=== PATIENT | female | born 1950 | race Caucasian/White ===

== ENCOUNTER 2018-06-26 15:57 | Emergency (ER) | payer MEDICARE, OTHER ==
[2018-06-26 16:06] VITALS: BP 154/82
--- NOTE | 2018-06-26 17:52 | ER Document Report ---
ED Medical Screen (RME) - General Chief Complaint: Eye Problem Stated Complaint: EYE PAIN Time Seen by Provider: 06/26/18 17:50 Mode of Arrival: Ambulatory Information source: Patient Notes: 67-year-old female presents to ED for complaint of severe pain in bilateral eyes. Patient has a history of Sjogren's, rheumatoid arthritis, and benign heart palpitations. She has been seen by a food counselor at home she does not live in [place]. She states she receives steroid drops 2 drops in each eye 4-week then she had one drop in each eye for week and then she was started on Restasis for 5 days ago. She states 2 days ago her eyes started to swell become very painful and they had blisters on she went to an urgent care yesterday they told her to stop the Restasis and gave her prednisone because it was an allergic reaction. She states she also had a lot of swelling soreness and crusting drainage. She states she went back to the urgent care today and they put her on tobramycin and told her to go to the ER for further treatment. Patient states the eyes are still painful she is got a 3 out of 5 pain. She states she has Tylenol Motrin that she is been taken. Patient does have red swollen eyes at this time. I have greeted and performed a rapid initial assessment of this patient. A comprehensive ED assessment and evaluation of the patient, analysis of test results and completion of medical decision making process will be conducted by an additional ED providers. Past Medical History Renal/ Medical History: Denies: Hx Peritoneal Dialysis Musculoskeltal Medical History: Reports Hx Arthritis Past Surgical History: Reports: Hx Orthopedic Surgery - left wrist Physical Exam - Vital signs Vitals: Temp Pulse Resp BP Pulse Ox 98.3 F 96 18 154/82 H 92 06/26/18 16:05 06/26/18 16:05 06/26/18 16:05 06/26/18 16:05 06/26/18 16:05 Course - Vital Signs Vital signs: Temp Pulse Resp BP Pulse Ox 98.3 F 96 18 154/82 H 92 06/26/18 16:05 06/26/18 16:05 06/26/18 16:05 06/26/18 16:05 06/26/18 16:05
--- NOTE | 2018-06-26 19:29 | ER Document Report ---
ED General - General Chief Complaint: Eye Problem Stated Complaint: EYE PAIN Time Seen by Provider: 06/26/18 17:50 Mode of Arrival: Ambulatory Notes: 67-year-old female presents to ED for complaint of severe pain in bilateral eyes. Patient has a history of Sjogren's, rheumatoid arthritis, and benign heart palpitations. She states she receives steroid drops 2 drops in each eye 4 -week then she had one drop in each eye for week and then she was started on Restasis for 5 days ago. She states 2 days ago her eyes started to swell become very painful and they had blisters on she went to an urgent care yesterday they told her to stop the Restasis and gave her prednisone because it was an allergic reaction. She states she also had a lot of swelling soreness and crusting drainage. She states she went back to the urgent care today and they put her on tobramycin and told her to go to the ER for further treatment. She does also note that she recently started on a new eye cream and is wondering if this could have prompted her symptoms. Past Medical History - General Information source: Patient - Social History Smoking Status: Never Smoker Frequency of alcohol use: None Drug Abuse: None Lives with: Spouse/Significant other Family History: Reviewed & Not Pertinent Patient has suicidal ideation: No Patient has homicidal ideation: No Renal/ Medical History: Denies: Hx Peritoneal Dialysis Musculoskeletal Medical History: Reports Hx Arthritis Past Surgical History: Reports: Hx Orthopedic Surgery - left wrist Review of Systems - Review of Systems Notes: Constitutional: Negative for fever. HENT: Negative for sore throat. Eyes: Positive for bilateral eye irritation Cardiovascular: Negative for chest pain. Respiratory: Negative for shortness of breath. Gastrointestinal: Negative for abdominal pain, vomiting or diarrhea. Genitourinary: Negative for dysuria. Musculoskeletal: Negative for back pain. Skin: Negative for rash. Neurological: Negative for headaches, weakness or numbness. 10 point ROS negative except as marked above and in HPI. Physical Exam - Vital signs Vitals: Temp Pulse Resp BP Pulse Ox 98.3 F 96 18 154/82 H 92 06/26/18 16:05 06/26/18 16:05 06/26/18 16:05 06/26/18 16:05 06/26/18 16:05 Interpretation: Hypertensive Notes: PHYSICAL EXAMINATION: GENERAL: Well-appearing, well-nourished and in no acute distress. HEAD: Atraumatic, normocephalic. EYES: Pupils equal round and reactive to light, extraocular movements intact, diffuse scleral injection and conjunctival erythema. Crusting discharge to the bilateral corners of the left eye, not present on the right. There is seen staining applied. No evidence of corneal abrasion or ulcer. Visual acuity is 20/20 bilaterally at the bedside with glasses on. ENT: nares patent, oropharynx clear without exudates. Moist mucous membranes. NECK: Normal range of motion, supple without lymphadenopathy LUNGS: Breath sounds clear to auscultation bilaterally and equal. No wheezes rales or rhonchi. HEART: Regular rate and rhythm without murmurs ABDOMEN: Soft, nontender, normoactive bowel sounds. No guarding, no rebound. No masses appreciated. EXTREMITIES: Normal range of motion, no pitting or edema. No cyanosis. NEUROLOGICAL: No focal neurological deficits. Moves all extremities spontaneously and on command. PSYCH: Normal mood, normal affect. SKIN: Warm, Dry, normal turgor, no rashes or lesions noted. Course - Re-evaluation Re-evalutation: 06/26/18 19:25 Presentation of a slightly uncomfortable appearing 67-year-old female with a known history of Sjogren's and recurrent dry eyes. The patient appears to be having most likely an acute allergic reaction to either the Restasis versus a new cream that she had been applying around her eyes and face. My concern for this is based on the fact that she does have swelling of the eyelids and excess erythema and what appear to be faint urticaria along the cheeks and forehead as well where she has been applying this cream. I have advised immediate discontinuation. I advised that she continue on prednisone that she is already taking, use Visine moisturizing drops. The patient has also been advised to continue on the tobramycin as previously prescribed in case this could be a bacterial conjunctivitis. Viral conjunct Vitas is also on the differential although seems somewhat less likely given the absence of associated URI symptoms. Patient has no evidence of a corneal ulcer or corneal abrasion on exam. She did have complete relief of her symptoms here after getting a dose of tetracaine. I have advised outpatient follow-up with ophthalmology on Thursday. At this time will discharge with return precautions and follow-up recommendations. Verbal discharge instructions given a the bedside and opportunity for questions given. Medication warnings reviewed. Patient is in agreement with this plan and has verbalized understanding of return precautions and the need for ophthalmology follow-up on Thursday. - Vital Signs Vital signs: Temp Pulse Resp BP Pulse Ox 98.3 F 96 18 154/82 H 92 06/26/18 16:05 06/26/18 16:05 06/26/18 16:05 06/26/18 16:05 06/26/18 16:05 Discharge - Discharge Clinical Impression: Conjunctivitis Qualifiers: Conjunctivitis type: acute Acute conjunctivitis type: atopic Laterality: bilateral Qualified Code(s): H10.13 - Acute atopic conjunctivitis, bilateral Contact dermatitis Qualifiers: Contact dermatitis type: allergic Contact dermatitis trigger: cosmetics Qualified Code(s): L23.2 - Allergic contact dermatitis due to cosmetics Condition: Good Disposition: HOME, SELF-CARE Additional Instructions: Please continue on the tobramycin eyedrops, oral prednisone, begin cetirizine 10 mg 3 times daily which can be purchased directly over the counter. Please discontinue the new eye cream that you started recently. Continue to use moisturizing eyedrops as needed for discomfort. Please follow-up with ophthalmology on Thursday. Return to the emergency department immediately if you have worsening of your symptoms, changes in your vision, fever greater than 100.4 F, or any other symptoms that are worrisome to you. Referrals: SHAUN RUIZ DO [ACTIVE STAFF] - 06/28/18
== END 2018-06-26 19:54 | disposition home or self-care (01) ==
LOC: ER 15:57
DX: H10.13 Acute atopic conjunctivitis, bilateral (principal); L23.2 Allergic contact dermatitis due to cosmetics; H57.13 Ocular pain, bilateral
CPT/HCPCS: 99282

== ENCOUNTER 2019-08-30 02:03 | Emergency (ER) | payer MEDICARE, OTHER ==
[2019-08-30 03:46] LABS: ABSOLUTE BASOPHILS # (AUTO) 0.1 10^3/uL (0.0-0.2); ABSOLUTE LYMPHOCYTES (AUTO) 0.5 10^3/uL (0.5-4.7); ABSOLUTE MONOCYTES (AUTO) 0.5 10^3/uL (0.1-1.4); TOTAL CELLS COUNTED % (AUTO) 100 %
[2019-08-30 03:51] LABS: ABSOLUTE EOSINOPHILS # (AUTO) 0.1 10^3/uL (0.0-0.6); ABSOLUTE NEUT (AUTO) 5.2 10^3/uL (1.7-8.2); BASOPHILS % (AUTO) 0.9 % (0-2); EOSINOPHILS % (AUTO) 0.9 % (0-6); HEMATOCRIT 42.3 % (36.0-47.0); HEMOGLOBIN 14.5 g/dL (12.0-15.5); LYMPHOCYTES % (AUTO) 8.5 % (13-45); MEAN CORPUSCULAR HEMOGLOBIN 30.4 pg (27.0-33.4); MEAN CORPUSCULAR HGB CONC 34.2 g/dL (32.0-36.0); MEAN CORPUSCULAR VOLUME 89 fl (80-97); MONOCYTES % (AUTO) 8.1 % (3-13); PLATELET COUNT 193 10^3/uL (150-450); RED BLOOD COUNT 4.76 10^6/uL (3.72-5.28); RED CELL DISTRIBUTION WIDTH 13.1 % (11.5-14.0); SEGMENTED NEUTROPHILS % (AUTO) 81.6 % (42-78); WHITE BLOOD COUNT 6.4 10^3/uL (4.0-10.5)
[2019-08-30 03:55] LABS: APPEARANCE,URINE CLEAR; BILIRUBIN,URINE NEGATIVE (NEGATIVE); COLOR,URINE STRAW; GLUCOSE, URINE NEGATIVE (NEGATIVE); KETONES,URINE NEGATIVE (NEGATIVE); LEUKOCYTE ESTERASE,URINE NEGATIVE (NEGATIVE); NITRITE,URINE NEGATIVE (NEGATIVE); PROTEIN,URINE NEGATIVE (NEGATIVE); URINE SPECIFIC GRAVITY 1.004; UROBILINOGEN,URINE NEGATIVE mg/dL (<2.0)
[2019-08-30 04:07] LABS: ALBUMIN 4.2 g/dL (3.5-5.0); ALKALINE PHOSPHATASE 77 U/L (38-126); ANION GAP 10 (5-19); ASPARTATE AMINO TRANSFERASE 25 U/L (14-36); BILIRUBIN,TOTAL 0.4 mg/dL (0.2-1.3); BLOOD UREA NITROGEN 14 mg/dL (7-20); CALCIUM 9.6 mg/dL (8.4-10.2); CARBON DIOXIDE 25 mmol/L (22-30); CHLORIDE 104 mmol/L (98-107); GLUCOSE 111 mg/dL (75-110); POTASSIUM 4.5 mmol/L (3.6-5.0)
--- NOTE | 2019-08-30 04:31 | RADIOLOGY REPORT (SQ) ---
Chest 2 view on 08/30/2019 3:54 AM CLINICAL INDICATION: Shortness of breath COMPARISON: None FINDINGS: There is minimal linear atelectasis or scarring in the lower lungs. The lungs are otherwise clear. Cardiac, hilar and mediastinal contours are within normal limits. Pulmonary vascularity is within normal limits. IMPRESSION: No acute disease.
[2019-08-30] MEDS ORDERED: BENZONATATE 100 MG CAPSULE PO ONE (06:56)
[2019-08-30] MEDS ORDERED: IPRATROPIUM/ALBUTEROL 0.5-2.5 MG/3 ML AMPUL NEB ONE (06:56)
--- NOTE | 2019-08-30 06:56 | ER Document Report ---
ED General - General Chief Complaint: Shortness Of Breath Stated Complaint: SHORTNESS OF BREATH Time Seen by Provider: 08/30/19 06:43 Mode of Arrival: Ambulatory Information source: Patient TRAVEL OUTSIDE OF THE [place] IN LAST 30 DAYS: Yes - HPI Onset: Last week Onset/Duration: Gradual Quality of pain: Achy Severity: Moderate Pain Level: 1 Associated symptoms: Chest pain, Productive cough Exacerbated by: Coughing Relieved by: Denies Similar symptoms previously: No Recently seen / treated by doctor: Yes - patient went to urgent care recently and is on Augementin Notes: 68 year old female with a history of RA and Sjogrens Syndrome not currently on medications here for over a week of cough, congestion, chest pains (mostly when she coughs), and wheezing. The patient has had some low grade fevers but she denies chills or sweats. The patient says her is having similar symptoms. The patient recently traveled from [place]. The patient says she feels like there is stuff in her lungs which she cannot cough up. The patient denies leg edema or sleeping upright. The patient was seen at urgent care last week prescribed Augmentin (she has been on this for 3 days). - Related Data Allergies/Adverse Reactions: No Known Allergies Allergy (Verified 08/30/19 07:22) Home Medications: augmentin Past Medical History - General Information source: Patient - Social History Smoking Status: Former Smoker Frequency of alcohol use: Occasional Drug Abuse: None Lives with: Spouse/Significant other Family History: Reviewed & Not Pertinent Patient has suicidal ideation: No Patient has homicidal ideation: No - Past Medical History Cardiac Medical History: Reports: None Pulmonary Medical History: Reports: None EENT Medical History: Reports: None Neurological Medical History: Reports: None Renal/ Medical History: Reports: None. Denies: Hx Peritoneal Dialysis Malignancy Medical History: Reports: None GI Medical History: Reports: None Musculoskeletal Medical History: Reports Hx Arthritis - Rheumatoid Other: Sjogren's Syndrome Skin Medical History: Reports None Psychiatric Medical History: Reports: None Past Surgical History: Reports: Hx Orthopedic Surgery - left wrist Review of Systems - Review of Systems Constitutional: Weakness EENT: Other - sinus congestion Cardiovascular: Chest pain - with coughing. denies: Edema, Paroxysmal Nocturnal Dysp Respiratory: Cough, Wheezing Gastrointestinal: No symptoms reported Genitourinary: No symptoms reported Female Genitourinary: No symptoms reported Musculoskeletal: No symptoms reported Skin: No symptoms reported Hematologic/Lymphatic: No symptoms reported Neurological/Psychological: No symptoms reported Physical Exam - Vital signs Vitals: Temp Pulse Resp BP Pulse Ox 98.7 F 102 H 24 H 167/78 H 95 08/30/19 02:31 08/30/19 02:08/30/19 02:08/30/19 02:08/30/19 02:31 - Notes Notes: GENERAL: Well-appearing, well-nourished and in no acute distress. HEAD: Atraumatic, normocephalic. EYES: Pupils equal round and reactive to light, extraocular movements intact, sclera anicteric, conjunctiva are normal. ENT: TMs normal, nares patent, oropharynx clear without exudates. Moist mucous membranes. NECK: Normal range of motion, supple without lymphadenopathy or JVD. LUNGS: Mild Rhonchi at base of left lung. Very Mild Rhonchi at base of right lung. No wheezing. HEART: Regular rate and rhythm without murmurs, rubs or gallops. ABDOMEN: Soft, nontender, normoactive bowel sounds. No guarding, no rebound. No masses appreciated. EXTREMITIES: Normal range of motion, no pitting or edema. No clubbing or cyanosis. NEUROLOGICAL: Cranial nerves II through XII grossly intact. Normal speech, normal gait. PSYCH: Normal mood, normal affect. SKIN: Warm, Dry, normal turgor, no rashes or lesions noted. Course - Re-evaluation Re-evalutation: 08/30/19 07:10 The patient is here for over a week of URI like symptoms: cough, congestion, chest pain with coughing. She is currently on Day 4 of an Augmentin course. On exam she has some mild Rhonchi at her lung bases. Patient has tried over the counter cough suppressants without success. Will treat in the ER with Tessalon Perles, a Neb, and a dose of Prednisone. Patient had labs and a chest xray done prior to me seeing her and these were unremarkable. Patient's is having similar symptoms making a viral illness seem most likely. - Vital Signs Vital signs: Temp Pulse Resp BP Pulse Ox 98.7 F 102 H 24 H 167/78 H 95 08/30/19 02:31 08/30/19 02:31 08/30/19 02:31 08/30/19 02:31 08/30/19 02:31 - Laboratory Result Diagrams: 08/30/19 03:29 08/30/19 03:29 Laboratory results interpreted by me: 08/30/19 08/30/19 03:29 03:29 Lymph % (Auto) 8.5 L Seg Neutrophils % 81.6 H Glucose 111 H Discharge - Discharge Clinical Impression: Cough Upper respiratory infection Qualifiers: URI type: unspecified viral URI Qualified Code(s): J06.9 - Acute upper respiratory infection, unspecified Condition: Stable Disposition: HOME, SELF-CARE Instructions: Upper Respiratory Illness ([facility]) Additional Instructions: Finish your previously prescribed Augmentin. Use Albuterol as needed for wheezing/shortness of breath. Use Naproxen for chest pains and body pains as well as over the counter Tylenol. Use Tessalon Perles for cough. Follow up with a primary care doctor if symptoms persist. You had lab work and a chest xray the ER today which showed no acute process. Prescriptions: Benzonatate [Tessalon Perles 100 mg Capsule] 100 mg PO Q8HP PRN #20 capsule PRN Reason: Naproxen 500 mg PO BID PRN #14 tablet PRN Reason: Albuterol Sulfate [Proair HFA Inhalation Aerosol 8.5 gm MDI] 2 puff IH Q4H PRN #1 mdi PRN Reason:
[2019-08-30] MEDS ORDERED: PREDNISONE 20 MG TABLET PO ONE (07:02)
[2019-08-30 07:22] LABS: NT PRO BNP 82 pg/mL (<125)
[2019-08-30 07:28] LABS: TROPONIN I < 0.012 ng/mL
[2019-08-30 08:29] VITALS: BP 128/80
--- NOTE | 2019-08-30 09:45 | EKG REPORT ---
SEVERITY:- ABNORMAL ECG - SINUS RHYTHM INFERIOR INFARCT, OLD : Confirmed by: Latoya Santiago 30-Aug-2019 09:44:52
== END 2019-08-30 08:32 | disposition home or self-care (01) ==
LOC: ER 02:03
DX: J06.9 Acute upper respiratory infection, unspecified (principal); R05 Cough; R06.02 Shortness of breath; R07.9 Chest pain, unspecified; M06.9 Rheumatoid arthritis, unspecified; R09.81 Nasal congestion; R50.9 Fever, unspecified; R06.2 Wheezing; Z87.891 Personal history of nicotine dependence
CPT/HCPCS: 93005; 94640; 99285; 36415; 85025; 80053; 81001; 84484; 83880; 71046; 93010; A9270 ×3; J7512; J7620